=== PATIENT | female | born 1980 | race Caucasian/White ===

== ENCOUNTER 2017-08-23 05:56 | Day surgery (SDC) | payer BC ==
[2017-08-23] MEDS ORDERED: Sodium Chloride 0.9% 10 ML Syringe FLUSH PRN (06:45)
[2017-08-23] MEDS ORDERED: Lactated Ringers 1,000 ML IV SCH (06:45)
[2017-08-23] MEDS ORDERED: Midazolam 1 MG/ML 2 ML SDV IV ONE (09:30)
[2017-08-23] MEDS ORDERED: Propofol 200 MG/20 ML SDV IV ONE (09:30)
--- NOTE | 2017-08-23 09:56 | PCM.OPNOTE ---
- General Post-Op/Procedure Note Date of Surgery/Procedure: 08/23/17 Operative Procedure(s): egd with bx Findings: gastritis Pre Op Diagnosis: epigastric abd pain Post-Op Diagnosis: gastritis Anesthesia Technique: MAC Primary Surgeon: Claude Tadeo Anesthesia Provider: Celestino Olson Pathology: stomach Complications: None Condition: Good Free Text/Narrative:: see dictation
--- NOTE | 2017-08-23 11:27 | OR ---
DATE OF OPERATION: 08/23/2017 SURGEON: Claude Tadeo MD PROCEDURE PERFORMED: Upper endoscopy with cold forceps biopsy. PREOPERATIVE DIAGNOSIS: Epigastric abdominal pain. POSTOPERATIVE DIAGNOSIS: Gastritis. INDICATIONS FOR PROCEDURE: This is a 37-year-old white female who has a history of epigastric abdominal pain. She was offered and accepted an EGD. DESCRIPTION OF PROCEDURE: After an excellent IV sedation was administered, bite block was inserted, flexible endoscope was passed without difficulty down the patient's esophagus into the stomach. Stomach was insufflated. Scope was passed through the pylorus to the second portion of the duodenum and slowly withdrawn. The following findings were noted: The duodenum was unremarkable. Stomach demonstrated diffuse mild gastritis, multiple biopsies were taken. GE junction measured at 40 cm. Remainder of the esophageal exam was unremarkable. The stomach was deflated. Scope was removed. The patient tolerated the procedure well, and was taken to recovery in good condition. /[id number] KERON/JOHN
== END 2017-08-23 10:33 | disposition home or self-care (01) ==
LOC: FB.SDS 05:56
PROVIDERS: ATTEND Surgery
DX: K29.50 Unspecified chronic gastritis without bleeding (principal); F41.8 Other specified anxiety disorders; E03.9 Hypothyroidism, unspecified; Z79.899 Other long term (current) drug therapy; Z87.891 Personal history of nicotine dependence
CPT/HCPCS: 81025; 88305; 88342; J2250; J2704; J7120